=== PATIENT | male | born 2000 ===

== ENCOUNTER 2021-04-26 22:16 | Emergency (ER) | payer SELFPAY ==
[~2021-04-26] VITALS: Ht 172.7 cm; Wt 68.2 kg
[2021-04-26 22:22] VITALS: BP 111/75; Ht 172.7 cm; Wt 68.2 kg
== END 2021-04-26 23:55 | disposition home or self-care (01) ==
LOC: D.ER 22:16
DX: S60.031A Contusion of right middle finger without damage to nail, initial encounter (principal); S67.192A Crushing injury of right middle finger, initial encounter; W23.0XXA Caught, crushed, jammed, or pinched between moving objects, initial encounter; Y93.9 Activity, unspecified; Y92.9 Unspecified place or not applicable